=== PATIENT | female | born 1980 | race Caucasian/White ===

== ENCOUNTER → 2017-06-25 | Outpatient (CLI) | payer BC ==
[2017-06-25 11:30] LABS: BASOPHILS # (AUTO) 0.1 X10^3/uL (0.0-0.1); BASOPHILS % (AUTO) 0.7 % (0.2-1.0); EOSINOPHILS # (AUTO) 0.1 x10^3/uL (0.0-0.2); EOSINOPHILS % (AUTO) 1.2 % (0.9-2.9); HEMATOCRIT 34.9 % (36.0-47.0); HEMOGLOBIN 11.3 g/dL (12.0-16.0); LYMPHOCYTES # (AUTO) 2.3 X10^3/uL (1.3-2.9); LYMPHOCYTES % (AUTO) 28.4 % (21.0-51.0); MEAN CORPUSCULAR HEMOGLOBIN 23.6 pg (27.0-34.0); MEAN CORPUSCULAR HGB CONC 32.2 g/dL (33.0-35.0); MEAN CORPUSCULAR VOLUME 73.3 fL (80.0-100.0); MEAN PLATELET VOLUME 7.5 fL (7.4-11.0); MONOCYTES # (AUTO) 0.4 x10^3/uL (0.3-0.8); MONOCYTES % (AUTO) 5.6 % (0.0-13.0); NEUTROPHILS # (AUTO) 5.1 x10^3/uL (2.2-4.8); NEUTROPHILS % (AUTO) 64.1 % (42.0-75.0); PLATELET COUNT 323 X10^3/uL (150.0-450.0); RED BLOOD COUNT 4.77 X10^6/uL (3.5-5.4); RED CELL DISTRIBUTION WIDTH 18.7 % (11.6-16.5)
[2017-06-25 11:34] LABS: HYPOCHROMASIA 1+; PLATELET MORPHOLOGY COMMENT NORMAL (NORMAL)
[2017-06-25 11:38] LABS: BILIRUBIN,URINE NEGATIVE (NEGATIVE); BLOOD/HEMOGLOBIN,URINE 3+ (NEGATIVE); GLUCOSE, URINE NEGATIVE (NEGATIVE); KETONES,URINE NEGATIVE (NEGATIVE); LEUKOCYTE ESTERASE ,URINE 1+ (NEGATIVE); NITRITES,URINE NEGATIVE (NEGATIVE); PH,URINE 6.5 (5.0 - 8.0); PROTEIN,URINE NEGATIVE (NEGATIVE); UROBILINOGEN,URINE NORMAL (NORMAL)
[2017-06-25 11:44] LABS: BLOOD UREA NITROGEN 14 mg/dL (7-18); CALCIUM 8.8 mg/dL (8.5-10.1); CARBON DIOXIDE 26.3 mmol/L (21-32); CHLORIDE 107 mmol/L (98-107); CREATININE 0.91 mg/dL (0.55-1.02); SODIUM 141 mmol/L (136-145); eGFR BLACK RACES > 60 (>60); eGFR NON BLACK RACES > 60 (>60)
[2017-06-25 11:51] LABS: SERUM PREGNANCY TEST, QUAL NEGATIVE <10 mIU/mL
[2017-06-25 12:06] LABS: APPEARANCE,URINE SLIGHTLY HAZY (CLEAR); COLOR,URINE YELLOW (YELLOW)
[2017-06-25 12:07] LABS: BACTERIA,URINE TRACE /HPF (NEGATIVE); MUCUS,URINE FEW /HPF (NEGATIVE); RBC,URINE 0 - 3 /HPF (NEGATIVE); SQUAMOUS EPITHELIAL CELL,UR FEW /HPF (NEGATIVE)
== END ==
LOC: LAB 10:37
PROVIDERS: ATTEND Specialist
DX: Z01.818 Encounter for other preprocedural examination (principal); Z32.00 Encounter for pregnancy test, result unknown; Z01.812 Encounter for preprocedural laboratory examination
CPT/HCPCS: 36415; 80048; 81001; 84703; 85025; 85610; 85730; 86850; 86900; 86901; 87086

== ENCOUNTER 2017-06-27 06:19 | Inpatient (IN) | payer BC ==
[~2017-06-27 06:19] MED LIST: D5 1/2 NS 1000 ML 1,000 ML IV ONE
[2017-06-27] MEDS ORDERED: D5 1/2 NS 1000 ML 1,000 ML IV SCH ×2 (06:30→10:00)
[2017-06-27] MEDS ORDERED: ANCEF VIAL 1 GM 1 GM in NS 50 ML IV + SPIKE MINIBAG* 50 ML IV PRN (06:30)
[2017-06-27 06:54] VITALS: BMI 38.6
[2017-06-27] MEDS: FENTANYL INJ 250 mcg ONE ×2 (07:12→07:21)
[2017-06-27] MEDS: DECADRON INJ ONE ×2 (07:12→07:21)
[2017-06-27] MEDS: ANCEF VIAL 1 GM ONE ×2 (07:12→07:15)
[2017-06-27] MEDS: NS 50 ML IV + SPIKE MINIBAG* 50 ML IV ONE ×2 (07:13→07:15)
[2017-06-27] MEDS ORDERED: NS IRRIGATION 1000 ML 1,000 ML IR ONE ×2 (07:51→08:29)
[2017-06-27 08:07] LABS: BILIRUBIN,URINE NEGATIVE (NEGATIVE); BLOOD/HEMOGLOBIN,URINE NEGATIVE (NEGATIVE); GLUCOSE, URINE NEGATIVE (NEGATIVE); KETONES,URINE NEGATIVE (NEGATIVE); LEUKOCYTE ESTERASE ,URINE 1+ (NEGATIVE); NITRITES,URINE POSITIVE (NEGATIVE); PROTEIN,URINE 1+ (NEGATIVE); UROBILINOGEN,URINE NORMAL (NORMAL)
[2017-06-27 08:15] LABS: APPEARANCE,URINE HAZY (CLEAR); BACTERIA,URINE TRACE /HPF (NEGATIVE); COLOR,URINE YELLOW (YELLOW); RBC,URINE 0-2 /HPF (NEGATIVE); SQUAMOUS EPITHELIAL CELL,UR NEGATIVE /HPF (NEGATIVE)
[2017-06-27] MEDS ORDERED: DILAUDID INJ ONE (08:32)
[2017-06-27] MEDS: LR 1000 ML IV 1,000 ML IV ONE ×2 (08:35→08:38)
[2017-06-27] MEDS ORDERED: ZOFRAN INJ 4 MG VIAL IVP PRN ×2 (09:09→09:29)
[2017-06-27] MEDS ORDERED: BENADRYL INJ 50 MG VIAL IVP PRN ×2 (09:09→09:29)
[2017-06-27] MEDS ORDERED: PHENERGAN INJ 25 MG IVP PRN (09:09)
[2017-06-27] MEDS ORDERED: REGLAN INJ 10 MG VIAL IVP PRN (09:09)
[2017-06-27] MEDS: DILAUDID INJ IVP PRN ×3 (09:17→09:26)
[2017-06-27] MEDS ORDERED: TORADOL 30 MG VIAL IVP PRN (09:29)
[2017-06-27] MEDS: D5 1/2 NS 1000 ML 1,000 ML IV SCH ×2 (10:26→17:58)
[2017-06-27] MEDS: MORPHINE SULFATE PCA 30 MG IVP PRN ×2 (10:27→14:16)
[2017-06-27] MEDS ORDERED: ULTANE GAS IN ONE (14:38)
[2017-06-27] MEDS ORDERED: DIPRIVAN VIAL ONE (14:38)
[2017-06-27] MEDS ORDERED: QUELICIN (OR ANECTINE) ONE (14:38)
[2017-06-27] MEDS ORDERED: EPHEDRINE SULFATE INJ ONE (14:38)
[2017-06-27] MEDS ORDERED: NORCURON INJ 10 MG VIAL ONE (14:38)
[2017-06-27] MEDS ORDERED: VERSED ONE (14:38)
[2017-06-27] MEDS ORDERED: LTA KIT LIDOCAINE 4% ONE (14:38)
[2017-06-27] MEDS ORDERED: NEOSTIGMINE INJ ONE (14:38)
[2017-06-27] MEDS ORDERED: XYLOCAINE 2 % (PLAIN) ONE (14:38)
[2017-06-27] MEDS ORDERED: ROBINUL ONE (14:38)
[2017-06-27] MEDS ORDERED: ZOFRAN INJ 4 MG VIAL ONE (14:38)
[2017-06-28] MEDS: D5 1/2 NS 1000 ML 1,000 ML IV SCH ×2 (00:57→07:01)
[2017-06-28] MEDS: MORPHINE SULFATE PCA 30 MG IVP PRN (04:06)
[2017-06-28 05:35] LABS: BASOPHILS % (AUTO) 0.2 % (0.2-1.0); EOSINOPHILS % (AUTO) 0.3 % (0.9-2.9); HEMATOCRIT 28.9 % (36.0-47.0); HEMOGLOBIN 9.6 g/dL (12.0-16.0); LYMPHOCYTES # (AUTO) 1.7 X10^3/uL (1.3-2.9); LYMPHOCYTES % (AUTO) 17.6 % (21.0-51.0); MEAN CORPUSCULAR HEMOGLOBIN 24.2 pg (27.0-34.0); MEAN CORPUSCULAR HGB CONC 33.2 g/dL (33.0-35.0); MEAN CORPUSCULAR VOLUME 72.8 fL (80.0-100.0); MEAN PLATELET VOLUME 7.6 fL (7.4-11.0); MONOCYTES # (AUTO) 0.8 x10^3/uL (0.3-0.8); MONOCYTES % (AUTO) 7.7 % (0.0-13.0); NEUTROPHILS # (AUTO) 7.4 x10^3/uL (2.2-4.8); NEUTROPHILS % (AUTO) 74.2 % (42.0-75.0); PLATELET COUNT 273 X10^3/uL (150.0-450.0); RED BLOOD COUNT 3.97 X10^6/uL (3.5-5.4); RED CELL DISTRIBUTION WIDTH 18.5 % (11.6-16.5); WHITE BLOOD COUNT 9.9 X10^3/uL (3.6-10.0)
[2017-06-28 05:40] LABS: BLOOD UREA NITROGEN 6 mg/dL (7-18); CALCIUM 8.3 mg/dL (8.5-10.1); CARBON DIOXIDE 29.1 mmol/L (21-32); CHLORIDE 105 mmol/L (98-107); CREATININE 0.82 mg/dL (0.55-1.02); SODIUM 140 mmol/L (136-145); eGFR BLACK RACES > 60 (>60); eGFR NON BLACK RACES > 60 (>60)
[2017-06-28] MEDS ORDERED: MYLICON TAB 80 MG CHEW PO PRN (06:15)
[2017-06-28 06:43] LABS: MICROCYTOSIS SLIGHT; PLATELET MORPHOLOGY COMMENT NORMAL (NORMAL)
[2017-06-28] MEDS: PERCOCET TAB 5/325 MG PO PRN ×5 (07:02→23:37)
[2017-06-28] MEDS: ESTRACE PO SCH ×2 (08:23→08:28)
[2017-06-28] MEDS: PROzac PO SCH ×2 (08:23→08:29)
[2017-06-28] MEDS: COLACE CAP 100 MG PO SCH ×2 (08:28→21:30)
[2017-06-28] MEDS: BUSPAR PO SCH (08:28)
[2017-06-28] MEDS: BACTROBAN OINT TOP SCH ×2 (14:35→20:30)
[2017-06-28] MEDS: MOTRIN TAB 800 MG PO PRN ×2 (14:41→21:28)
[2017-06-28] MEDS ORDERED: KLONOPIN TAB 0.5 MG PO SCH (21:00)
[2017-06-29] MEDS: PERCOCET TAB 5/325 MG PO PRN ×2 (04:02→08:26)
[2017-06-29] MEDS: BACTROBAN OINT TOP SCH (06:00)
[2017-06-29] MEDS: MOTRIN TAB 800 MG PO PRN (06:05)
[2017-06-29] MEDS: COLACE CAP 100 MG PO SCH (08:25)
[2017-06-29] MEDS: BUSPAR PO SCH (08:25)
[2017-06-29] MEDS: ESTRACE PO SCH (08:26)
[2017-06-29] MEDS: PROzac PO SCH (08:26)
[2017-06-29 11:22] VITALS: BP 127/70
== END 2017-06-29 11:05 | disposition home or self-care (01) | DRG 761 ==
LOC: MED/SURG 06:19
PROVIDERS: ADMIT Specialist; ATTEND Specialist
PROC: 0UTC0ZZ Resection of Cervix, Open Approach (ICD-10-PCS; 2017-06-27)
PROC: 0UT70ZZ Resection of Bilateral Fallopian Tubes, Open Approach (ICD-10-PCS; 2017-06-27)
PROC: 0UT20ZZ Resection of Bilateral Ovaries, Open Approach (ICD-10-PCS; 2017-06-27)
PROC: 0UT90ZZ Resection of Uterus, Open Approach (ICD-10-PCS; principal; 2017-06-27 07:30)
DX: N94.4 Primary dysmenorrhea (principal); N92.5 Other specified irregular menstruation; F41.8 Other specified anxiety disorders; D50.8 Other iron deficiency anemias
CPT/HCPCS: 36415; 80048; 81001; 85025; 87086; A4216; A4222; J0330; J0690; J1100; J1170; J1200; J1885; J2001; J2250; J2271; J2405; J2710; J3010; J3490; J7042; J7120